=== PATIENT | male | born 1935 | race Caucasian/White ===

== ENCOUNTER → 2016-10-19 | Outpatient (REF) | payer MEDICARE, BC, OTHER ==
[~2016-10-19] MED LIST: ASPI81TA85 PO; CLOP75TA2 PO; COMBAER6 INH; CYAN1000VL PO; DOXA1TAB40 PO; DRIS50002 PO; DRON40TA PO; FURO40TA2 PO; HYDR-3911 PO; LOTE0.5S OS; LOTRCRE TOP; NITR4TASL SL; OMEP40CA2 PO; POTA75TA PO; PRAV40TA2 PO; SENO8.6T5 PO
[2016-10-19 11:41] LABS: BASO % 0.4 % (0.0-1.0); EOS # 0.2 K/mm3 (0.0-0.50); EOS % 2.9 % (0.0-3.0); LARGE UNSTAINED CELL # 0.1 K/mm3 (0.0-0.4); LARGE UNSTAINED CELL % 1.4 % (0.0-4.0); LYMPH # 0.7 K/mm3 (1.5-4.5); LYMPH % 9.9 % (24.0-44.0); MEAN CORPUSCULAR HEMOGLOBIN 31.3 pg (27.0-33.0); MEAN CORPUSCULAR VOLUME 92.1 fl (80.0-96.0); MONO # 0.5 K/mm3 (0.0-0.8); MONO % 6.7 % (0.0-5.0); NEUTROPHILS # 5.4 K/mm3 (1.8-7.7); NEUTROPHILS % 78.8 % (36.0-66.0); PLATELET COUNT, AUTOMATED 167 k/mm3 (150-450); RED CELL DISTRIBUTION WIDTH 12.9 % (11.5-14.5); WHITE BLOOD COUNT 6.8 K/mm3 (4.0-10.0)
[2016-10-19 12:09] LABS: ALBUMIN 3.4 GM/DL (3.2-5.2); CALCIUM LEVEL 8.8 MG/DL (8.8-10.2); CREATININE FOR GFR 1.25 MG/DL (0.70-1.30); GLOMERULAR FILTRATION RATE 58.7 (>35); MAGNESIUM LEVEL 2.2 MG/DL (1.8-2.4); PHOSPHORUS LEVEL 3.1 MG/DL (2.5-4.9); POTASSIUM SERUM 4.1 MEQ/L (3.5-5.1)
== END ==
LOC: M LABDRAWC 11:23
PROVIDERS: ATTEND Internal Medicine Nephrology
DX: E55.9 Vitamin D deficiency, unspecified (principal); N18.2 Chronic kidney disease, stage 2 (mild); N25.81 Secondary hyperparathyroidism of renal origin; I15.9 Secondary hypertension, unspecified; D63.1 Anemia in chronic kidney disease
CPT/HCPCS: 36415; 80069; 81001; 82306; 83735; 83970; 85025; G0463

== ENCOUNTER → 2016-11-27 | Outpatient (REF) | payer MEDICARE, OTHER ==
[2016-11-27 16:53] LABS: ANION GAP 11 MEQ/L (8-16); BLOOD UREA NITROGEN 28 MG/DL (7-18); CALCIUM LEVEL 8.6 MG/DL (8.8-10.2); CARBON DIOXIDE LEVEL 25 MEQ/L (21-32); CHLORIDE LEVEL 96 MEQ/L (98-107); CREATININE FOR GFR 1.12 MG/DL (0.70-1.30); GLOMERULAR FILTRATION RATE > 60.0 (>35); GLUCOSE, FASTING 144 MG/DL (83-110); POTASSIUM SERUM 4.4 MEQ/L (3.5-5.1); SODIUM LEVEL 132 MEQ/L (136-145)
== END ==
LOC: M SFHCCLAY 10:51
PROVIDERS: ATTEND Nurse Practitioner Family
DX: I50.9 Heart failure, unspecified (principal)

== ENCOUNTER → 2016-11-27 | Outpatient (CLI) | payer MEDICARE, BC, OTHER ==
--- NOTE | 2016-11-27 12:58 | REP ---
PA and lateral chest: Comparison is 11/13/2015. There is chronic interstitial coarsening, unchanged, compatible with chronic lung disease. Cardiomegaly and pacemaker are again identified, unchanged. There are surgical clips in the soft tissues of the neck on the left. The alejandra, mediastinum, and bony thorax are unremarkable for patient age, and unchanged. Impression: Chronic interstitial coarsening, chronic cardiomegaly and pacemaker. No new or acute cardiopulmonary findings.
== END ==
LOC: M CLY 11:07
PROVIDERS: ATTEND Nurse Practitioner Family
DX: I50.9 Heart failure, unspecified (principal); I51.7 Cardiomegaly; Z95.0 Presence of cardiac pacemaker
CPT/HCPCS: 71020; 80048; G0463

== ENCOUNTER → 2017-09-16 | Outpatient (REF) | payer MEDICARE, BC, OTHER ==
[2017-09-16 20:19] LABS: APPEARANCE, URINE HAZY (CLEAR); BACTERIA, URINE AUTO 1+ (NEGATIVE); BILIRUBIN, URINE AUTO NEGATIVE (NEGATIVE); BLOOD, URINE BLOOD 3+ (NEGATIVE); COLOR, URINE RED (YELLOW); GLUCOSE, URINE (UA) AUTO NEGATIVE (NEGATIVE); KETONE, URINE AUTO NEGATIVE (NEGATIVE); LEUKOCYTE ESTERASE, URINE AUTO NEGATIVE (NEGATIVE); MUCUS, URINE SMALL (NEGATIVE); NITRITE, URINE AUTO NEGATIVE (NEGATIVE); PROTEIN, URINE AUTO 1+ mg/dL (NEGATIVE); RBC, URINE AUTO TNTC /HPF (0-3); SPECIFIC GRAVITY URINE AUTO 1.006 (1.002-1.035); SQUAMOUS EPITHELIAL CELL UR AU 0 /HPF (0-6); UROBILINOGEN, URINE AUTO 0.2 mg/dL (0.0-2.0); WBC, URINE AUTO 5 /HPF (0-3)
== END ==
LOC: M LAB REF 16:48
DX: N18.3 Chronic kidney disease, stage 3 (moderate) (principal); R31.9 Hematuria, unspecified; I70.1 Atherosclerosis of renal artery
CPT/HCPCS: 81001

== ENCOUNTER → 2017-09-22 | Outpatient (CLI) | payer MEDICARE, BC, OTHER ==
[~2017-09-22] MED LIST changes: -ASPI81TA85 PO; -CLOP75TA2 PO; -COMBAER6 INH; -CYAN1000VL PO; -DOXA1TAB40 PO; -DRIS50002 PO; -DRON40TA PO; -FURO40TA2 PO; -HYDR-3911 PO; +ISOVUE-370 76% 100ML VIAL (Q9967) As Ordered; -LOTE0.5S OS; -LOTRCRE TOP; -NITR4TASL SL; -OMEP40CA2 PO; -POTA75TA PO; -PRAV40TA2 PO; -SENO8.6T5 PO
== END ==
LOC: M RAD 16:53
DX: N18.3 Chronic kidney disease, stage 3 (moderate) (principal); I15.0 Renovascular hypertension; R31.9 Hematuria, unspecified; Z85.46 Personal history of malignant neoplasm of prostate; J84.10 Pulmonary fibrosis, unspecified; Z95.0 Presence of cardiac pacemaker; N20.0 Calculus of kidney; N13.30 Unspecified hydronephrosis
CPT/HCPCS: Q9967

== ENCOUNTER → 2017-09-29 | Outpatient (REF) | payer MEDICARE, BC, OTHER ==
[2017-09-29 13:49] LABS: AMORPHOUS SEDIMENT SMALL (NEGATIVE); APPEARANCE, URINE HAZY (CLEAR); BACTERIA, URINE AUTO NEGATIVE (NEGATIVE); BILIRUBIN, URINE AUTO NEGATIVE (NEGATIVE); BLOOD, URINE BLOOD 3+ (NEGATIVE); COLOR, URINE YELLOW (YELLOW); GLUCOSE, URINE (UA) AUTO NEGATIVE (NEGATIVE); KETONE, URINE AUTO NEGATIVE (NEGATIVE); LEUKOCYTE ESTERASE, URINE AUTO NEGATIVE (NEGATIVE); MUCUS, URINE SMALL (NEGATIVE); NITRITE, URINE AUTO NEGATIVE (NEGATIVE); PROTEIN, URINE AUTO NEGATIVE (NEGATIVE); RBC, URINE AUTO TNTC /HPF (0-3); SPECIFIC GRAVITY URINE AUTO 1.009 (1.002-1.035); SQUAMOUS EPITHELIAL CELL UR AU 0 /HPF (0-6); UROBILINOGEN, URINE AUTO 0.2 mg/dL (0.0-2.0); WBC, URINE AUTO 11 /HPF (0-3)
== END ==
LOC: M SMT 12:59
DX: R31.9 Hematuria, unspecified (principal)
CPT/HCPCS: 81001

== ENCOUNTER → 2017-10-14 | Outpatient (CLI) | payer MEDICARE, BC, OTHER | LOC: M RAD 14:07 | DX: N26.1 Atrophy of kidney (terminal) (principal); N13.39 Other hydronephrosis | CPT/HCPCS: 76775 ==

== ENCOUNTER 2017-10-15 08:01 | Inpatient (IN) | payer MEDICARE, BC, OTHER ==
[2017-10-15] MEDS: FUROSEMIDE 40 MG/4 ML VIAL (J1940) IV ×2 (08:32→17:05)
[2017-10-15 08:45] LABS: BASO % 0.2 % (0.0-1.0); EOS # 0.1 10^3/uL (0.0-0.50); EOS % 0.8 % (0.0-3.0); HEMOGLOBIN 13.5 g/dl (13.5-17.5); IMMATURE GRANULOCYTE % 0.7 % (0-3.0); LYMPH # 0.6 10^3/uL (1.5-4.5); LYMPH % 3.7 % (24.0-44.0); MEAN CORPUSCULAR HEMOGLOBIN 29.2 pg (27.0-33.0); MEAN CORPUSCULAR HGB CONC 32.9 g/dl (32.0-36.5); MEAN CORPUSCULAR VOLUME 88.7 fl (80.0-96.0); MONO # 0.9 10^3/uL (0.0-0.8); MONO % 5.2 % (0.0-5.0); NEUTROPHILS # 15.4 10^3/uL (1.8-7.7); NEUTROPHILS % 89.4 % (36.0-66.0); PLATELET COUNT, AUTOMATED 196 10^3/uL (150-450); RED BLOOD COUNT 4.62 10^6/uL (4.30-6.10); RED CELL DISTRIBUTION WIDTH 14.2 % (11.5-14.5); WHITE BLOOD COUNT 17.2 10^3/uL (4.0-10.0)
[2017-10-15 09:14] LABS: INR 1.09; PROTHROMBIN TIME 14.3 SECONDS (12.1-14.4)
[2017-10-15 09:29] LABS: ALBUMIN 3.1 GM/DL (3.2-5.2); ALBUMIN/GLOBULIN RATIO 0.86 (1.00-1.93); ALKALINE PHOSPHATASE 73 U/L (45-117); ALT/SGPT 17 U/L (12-78); ANION GAP 9 MEQ/L (8-16); AST/SGOT 13 U/L (7-37); BILIRUBIN,DIRECT 0.1 MG/DL (0.0-0.2); BILIRUBIN,TOTAL 0.7 MG/DL (0.2-1.0); BLOOD UREA NITROGEN 48 MG/DL (7-18); CALCIUM LEVEL 9.4 MG/DL (8.8-10.2); CARBON DIOXIDE LEVEL 29 MEQ/L (21-32); CHLORIDE LEVEL 102 MEQ/L (98-107); CK-MB VALUE MASS 1.7 NG/ML (<3.6); CPK CREATINE PHOSPHOKINASE 23 U/L (39-308); CREATININE FOR GFR 1.53 MG/DL (0.70-1.30); GLOMERULAR FILTRATION RATE 46.4 (>35); GLUCOSE, FASTING 86 MG/DL (70-100); MB/CK RELATIVE INDEX 7.39 (< OR =4); NT-PRO BNP 23390 PG/ML (<450); POTASSIUM SERUM 3.2 MEQ/L (3.5-5.1); SODIUM LEVEL 140 MEQ/L (136-145); TOTAL PROTEIN 6.7 GM/DL (6.4-8.2); TROPONIN I 0.08 NG/ML (< 0.10)
[2017-10-15] MEDS ORDERED: METOPROLOL 5 MG/5 ML VIAL As Ordered (10:42)
[2017-10-15] MEDS: METOPROLOL 5 MG/5 ML VIAL IV ×3 (10:45→10:56)
[2017-10-15] MEDS: SOTALOL HCL 80 MG TAB PO ×2 (10:47→20:02)
[2017-10-15] MEDS ORDERED: NITROGLYCERIN 0.4 MG SUBL TABLET SL (14:15)
[2017-10-15] MEDS: POTASSIUM CHLORIDE 10 MEQ SR TABLET PO (14:38)
[2017-10-15] MEDS: CLOPIDOGREL 75 MG TAB PO (14:39)
[2017-10-15] MEDS: METOPROLOL TART 25 MG TABLET PO (14:40)
[2017-10-15 15:13] LABS: ANION GAP 8 MEQ/L (8-16); BLOOD UREA NITROGEN 48 MG/DL (7-18); CALCIUM LEVEL 9.2 MG/DL (8.8-10.2); CARBON DIOXIDE LEVEL 31 MEQ/L (21-32); CHLORIDE LEVEL 100 MEQ/L (98-107); CPK CREATINE PHOSPHOKINASE 17 U/L (39-308); CREATININE FOR GFR 1.81 MG/DL (0.70-1.30); FREE T4 1.02 NG/DL (0.76-1.46); GLOMERULAR FILTRATION RATE 38.2 (>35); GLUCOSE, FASTING 220 MG/DL (70-100); POTASSIUM SERUM 3.5 MEQ/L (3.5-5.1); SODIUM LEVEL 139 MEQ/L (136-145); TROPONIN I 0.09 NG/ML (< 0.10)
[2017-10-15 15:19] LABS: CK-MB VALUE MASS 2.1 NG/ML (<3.6); MB/CK RELATIVE INDEX 12.35 (< OR =4)
[2017-10-15] MEDS ORDERED: SLF 3 ML SYR IV (15:45)
[2017-10-15] MEDS: PRAVASTATIN 20 MG TAB PO (17:06)
[2017-10-15] MEDS: SENOKOT S TAB PO (17:06)
[2017-10-15] MEDS: FEBUXOSTAT 40 MG TABLET (ULORIC) PO (17:06)
[2017-10-15] MEDS: TERAZOSIN 1 MG CAP PO (17:06)
[2017-10-15] MEDS: CALCITRIOL 0.25 MCG CAP (S0169) PO (17:09)
[2017-10-15] MEDS: OMEPRAZOLE 20 MG CAP PO (20:02)
[2017-10-15] MEDS: SLF 3 ML SYR IV (20:03)
[2017-10-16] MEDS: SLF 3 ML SYR IV ×3 (04:17→20:12)
[2017-10-16 05:27] LABS: HEMATOCRIT 36.8 % (42.0-52.0); MEAN CORPUSCULAR HEMOGLOBIN 28.9 pg (27.0-33.0); MEAN CORPUSCULAR HGB CONC 32.6 g/dl (32.0-36.5); MEAN CORPUSCULAR VOLUME 88.7 fl (80.0-96.0); PLATELET COUNT, AUTOMATED 162 10^3/uL (150-450); RED BLOOD COUNT 4.15 10^6/uL (4.30-6.10); RED CELL DISTRIBUTION WIDTH 14.2 % (11.5-14.5); WHITE BLOOD COUNT 13.1 10^3/uL (4.0-10.0)
[2017-10-16 05:48] LABS: ALKALINE PHOSPHATASE 60 U/L (45-117); ALT/SGPT 15 U/L (12-78); ANION GAP 10 MEQ/L (8-16); AST/SGOT 11 U/L (7-37); BILIRUBIN,TOTAL 0.7 MG/DL (0.2-1.0); BLOOD UREA NITROGEN 55 MG/DL (7-18); CALCIUM LEVEL 9.1 MG/DL (8.8-10.2); CARBON DIOXIDE LEVEL 28 MEQ/L (21-32); CHLORIDE LEVEL 103 MEQ/L (98-107); CREATININE FOR GFR 1.58 MG/DL (0.70-1.30); GLOMERULAR FILTRATION RATE 44.7 (>35); GLUCOSE, FASTING 115 MG/DL (70-100); POTASSIUM SERUM 3.5 MEQ/L (3.5-5.1); SODIUM LEVEL 141 MEQ/L (136-145); TROPONIN I 0.07 NG/ML (< 0.10)
[2017-10-16] MEDS: FEBUXOSTAT 40 MG TABLET (ULORIC) PO (09:09)
[2017-10-16] MEDS: OMEPRAZOLE 20 MG CAP PO ×2 (09:09→20:11)
[2017-10-16] MEDS: FUROSEMIDE 40 MG/4 ML VIAL (J1940) IV (09:09)
[2017-10-16] MEDS: CLOPIDOGREL 75 MG TAB PO (09:10)
[2017-10-16] MEDS: SOTALOL HCL 80 MG TAB PO ×2 (09:10→20:11)
[2017-10-16] MEDS: PRAVASTATIN 20 MG TAB PO (09:10)
[2017-10-16] MEDS: CALCITRIOL 0.25 MCG CAP (S0169) PO (09:10)
[2017-10-16] MEDS: TERAZOSIN 1 MG CAP PO (09:10)
[2017-10-16] MEDS: POTASSIUM CHLORIDE 10 MEQ SR TABLET PO ×3 (14:37→20:11)
[2017-10-16 17:16] LABS: APPEARANCE, URINE HAZY (CLEAR); BACTERIA, URINE AUTO NEGATIVE (NEGATIVE); BILIRUBIN, URINE AUTO NEGATIVE (NEGATIVE); BLOOD, URINE BLOOD 3+ (NEGATIVE); COLOR, URINE YELLOW (YELLOW); GLUCOSE, URINE (UA) AUTO NEGATIVE (NEGATIVE); KETONE, URINE AUTO NEGATIVE (NEGATIVE); LEUKOCYTE ESTERASE, URINE AUTO NEGATIVE (NEGATIVE); MUCUS, URINE SMALL (NEGATIVE); NITRITE, URINE AUTO NEGATIVE (NEGATIVE); PROTEIN, URINE AUTO NEGATIVE (NEGATIVE); RBC, URINE AUTO TNTC /HPF (0-3); SPECIFIC GRAVITY URINE AUTO 1.009 (1.002-1.035); SQUAMOUS EPITHELIAL CELL UR AU 0 /HPF (0-6); UROBILINOGEN, URINE AUTO 0.2 mg/dL (0.0-2.0); WBC, URINE AUTO 8 /HPF (0-3)
[2017-10-16] MEDS: ATORVASTATIN 20 MG TAB PO (20:11)
[2017-10-16] MEDS: CARVedilol 3.125 MG TAB PO (20:11)
[2017-10-16] MEDS: SENOKOT S TAB PO (20:12)
[2017-10-17 05:46] LABS: HEMATOCRIT 37.1 % (42.0-52.0); HEMOGLOBIN 11.8 g/dl (13.5-17.5); MEAN CORPUSCULAR HEMOGLOBIN 28.6 pg (27.0-33.0); MEAN CORPUSCULAR HGB CONC 31.8 g/dl (32.0-36.5); MEAN CORPUSCULAR VOLUME 89.8 fl (80.0-96.0); PLATELET COUNT, AUTOMATED 168 10^3/uL (150-450); RED BLOOD COUNT 4.13 10^6/uL (4.30-6.10); RED CELL DISTRIBUTION WIDTH 14.4 % (11.5-14.5); WHITE BLOOD COUNT 10.3 10^3/uL (4.0-10.0)
[2017-10-17] MEDS: **hydrALAZINE** 10 MG TAB PO ×2 (06:00→12:16)
[2017-10-17] MEDS: SLF 3 ML SYR IV ×3 (06:00→21:18)
[2017-10-17] MEDS: ISOSORBIDE DIN (ISORDIL) 10 MG TAB PO ×2 (06:00→12:16)
[2017-10-17 06:02] LABS: ALBUMIN 2.8 GM/DL (3.2-5.2); ALBUMIN/GLOBULIN RATIO 0.85 (1.00-1.93); ALKALINE PHOSPHATASE 56 U/L (45-117); ALT/SGPT 15 U/L (12-78); ANION GAP 5 MEQ/L (8-16); AST/SGOT 10 U/L (7-37); BILIRUBIN,TOTAL 0.7 MG/DL (0.2-1.0); BLOOD UREA NITROGEN 52 MG/DL (7-18); CALCIUM LEVEL 9.1 MG/DL (8.8-10.2); CARBON DIOXIDE LEVEL 31 MEQ/L (21-32); CHLORIDE LEVEL 109 MEQ/L (98-107); CREATININE FOR GFR 1.38 MG/DL (0.70-1.30); GLOMERULAR FILTRATION RATE 52.3 (>35); GLUCOSE, FASTING 92 MG/DL (70-100); MAGNESIUM LEVEL 1.8 MG/DL (1.8-2.4); POTASSIUM SERUM 3.4 MEQ/L (3.5-5.1); SODIUM LEVEL 145 MEQ/L (136-145); TOTAL PROTEIN 6.1 GM/DL (6.4-8.2)
[2017-10-17] MEDS: FEBUXOSTAT 40 MG TABLET (ULORIC) PO (08:41)
[2017-10-17] MEDS: SPIRONOLACTONE 12.5MG PER 1/2 TABLET PO (08:41)
[2017-10-17] MEDS: CLOPIDOGREL 75 MG TAB PO (08:41)
[2017-10-17] MEDS: TORSEMIDE 20 MG TAB PO (08:41)
[2017-10-17] MEDS: SOTALOL HCL 80 MG TAB PO ×2 (08:41→21:17)
[2017-10-17] MEDS: CARVedilol 3.125 MG TAB PO ×2 (08:42→12:15)
[2017-10-17] MEDS: CALCITRIOL 0.25 MCG CAP (S0169) PO (08:42)
[2017-10-17] MEDS: OMEPRAZOLE 20 MG CAP PO ×2 (08:42→21:16)
[2017-10-17] MEDS: TERAZOSIN 1 MG CAP PO (08:43)
[2017-10-17] MEDS: **hydrALAZINE HCL** 25 MG TAB PO (17:49)
[2017-10-17] MEDS: ISOSORBIDE DIN. (ISORDIL) 20 MG TAB PO (17:49)
[2017-10-17] MEDS: POTASSIUM CHLORIDE 10 MEQ SR TABLET PO ×2 (17:49→21:17)
[2017-10-17] MEDS: CARVedilol 6.25 MG TAB PO (21:17)
[2017-10-17] MEDS: ATORVASTATIN 20 MG TAB PO (21:17)
[2017-10-18 05:16] LABS: HEMATOCRIT 36.9 % (42.0-52.0); HEMOGLOBIN 11.7 g/dl (13.5-17.5); MEAN CORPUSCULAR HEMOGLOBIN 28.7 pg (27.0-33.0); MEAN CORPUSCULAR HGB CONC 31.7 g/dl (32.0-36.5); MEAN CORPUSCULAR VOLUME 90.4 fl (80.0-96.0); PLATELET COUNT, AUTOMATED 159 10^3/uL (150-450); RED BLOOD COUNT 4.08 10^6/uL (4.30-6.10); RED CELL DISTRIBUTION WIDTH 14.4 % (11.5-14.5); WHITE BLOOD COUNT 8.9 10^3/uL (4.0-10.0)
[2017-10-18] MEDS: SLF 3 ML SYR IV ×2 (05:22→13:33)
[2017-10-18 05:39] LABS: ALBUMIN 2.8 GM/DL (3.2-5.2); ALBUMIN/GLOBULIN RATIO 0.85 (1.00-1.93); ALKALINE PHOSPHATASE 59 U/L (45-117); ALT/SGPT 14 U/L (12-78); ANION GAP 7 MEQ/L (8-16); AST/SGOT 11 U/L (7-37); BILIRUBIN,TOTAL 0.5 MG/DL (0.2-1.0); BLOOD UREA NITROGEN 46 MG/DL (7-18); CALCIUM LEVEL 8.7 MG/DL (8.8-10.2); CARBON DIOXIDE LEVEL 29 MEQ/L (21-32); CHLORIDE LEVEL 110 MEQ/L (98-107); CREATININE FOR GFR 1.42 MG/DL (0.70-1.30); GLOMERULAR FILTRATION RATE 50.6 (>35); GLUCOSE, FASTING 87 MG/DL (70-100); MAGNESIUM LEVEL 1.8 MG/DL (1.8-2.4); POTASSIUM SERUM 3.8 MEQ/L (3.5-5.1); SODIUM LEVEL 146 MEQ/L (136-145); TOTAL PROTEIN 6.1 GM/DL (6.4-8.2)
[2017-10-18] MEDS: **hydrALAZINE HCL** 25 MG TAB PO ×3 (06:20→16:21)
[2017-10-18] MEDS: ISOSORBIDE DIN. (ISORDIL) 20 MG TAB PO ×3 (06:20→16:21)
[2017-10-18] MEDS: OMEPRAZOLE 20 MG CAP PO (08:52)
[2017-10-18] MEDS: TERAZOSIN 1 MG CAP PO (08:52)
[2017-10-18] MEDS: SOTALOL HCL 80 MG TAB PO (08:52)
[2017-10-18] MEDS: CALCITRIOL 0.25 MCG CAP (S0169) PO (08:52)
[2017-10-18] MEDS: FEBUXOSTAT 40 MG TABLET (ULORIC) PO (08:52)
[2017-10-18] MEDS: CARVedilol 6.25 MG TAB PO (08:53)
[2017-10-18] MEDS: CLOPIDOGREL 75 MG TAB PO (08:53)
[2017-10-18] MEDS: POTASSIUM CHLORIDE 10 MEQ SR TABLET PO ×3 (08:53→16:21)
[2017-10-18] MEDS: TORSEMIDE 20 MG TAB PO (08:53)
[2017-10-18] MEDS ORDERED: FUROSEMIDE 20 MG/2 ML VIAL (J1940) As Ordered (11:59)
[2017-10-19 14:28] LABS: PSA TOTAL 0.9 ng/mL (0.0-4.0)
== END 2017-10-18 17:38 | disposition home or self-care (01) | DRG 291 ==
LOC: M ED 08:01 → M ED INP 13:52 → M PCU 15:26
DX: I13.0 Hypertensive heart and chronic kidney disease with heart failure and stage 1 through stage 4 chronic kidney disease, or unspecified chronic kidney disease (principal); I50.43 Acute on chronic combined systolic (congestive) and diastolic (congestive) heart failure; N13.30 Unspecified hydronephrosis; I48.0 Paroxysmal atrial fibrillation; I70.1 Atherosclerosis of renal artery; N18.3 Chronic kidney disease, stage 3 (moderate); Z95.0 Presence of cardiac pacemaker; E78.5 Hyperlipidemia, unspecified; E78.4 Other hyperlipidemia; I73.9 Peripheral vascular disease, unspecified; Z96.652 Presence of left artificial knee joint; Z96.651 Presence of right artificial knee joint; Z96.611 Presence of right artificial shoulder joint; Z96.612 Presence of left artificial shoulder joint; Z87.891 Personal history of nicotine dependence; Z79.899 Other long term (current) drug therapy; Z88.8 Allergy status to other drugs, medicaments and biological substances; I27.20 Pulmonary hypertension, unspecified; I49.5 Sick sinus syndrome; I08.0 Rheumatic disorders of both mitral and aortic valves; R31.0 Gross hematuria; Z86.73 Personal history of transient ischemic attack (TIA), and cerebral infarction without residual deficits; Z85.46 Personal history of malignant neoplasm of prostate

== ENCOUNTER → 2017-10-22 | Outpatient (REF) | payer MEDICARE, OTHER ==
[2017-10-22 11:31] LABS: ALBUMIN 3.1 GM/DL (3.2-5.2); ANION GAP 10 MEQ/L (8-16); BLOOD UREA NITROGEN 44 MG/DL (7-18); CALCIUM LEVEL 8.8 MG/DL (8.8-10.2); CARBON DIOXIDE LEVEL 23 MEQ/L (21-32); CHLORIDE LEVEL 111 MEQ/L (98-107); CREATININE FOR GFR 1.64 MG/DL (0.70-1.30); GLOMERULAR FILTRATION RATE 42.8 (>35); GLUCOSE, FASTING 86 MG/DL (70-100); PHOSPHORUS LEVEL 3.7 MG/DL (2.5-4.9); SODIUM LEVEL 144 MEQ/L (136-145)
[2017-10-22 11:36] LABS: POTASSIUM SERUM 5.3 MEQ/L (3.5-5.1)
== END ==
LOC: M SFHCCLAY 07:52
DX: I70.1 Atherosclerosis of renal artery (principal)
CPT/HCPCS: 80069

== ENCOUNTER → 2017-10-29 | Outpatient (REF) | payer MEDICARE, BC, OTHER ==
[2017-10-29 11:48] LABS: PROTHROMBIN TIME 13.3 SECONDS (12.1-14.4)
[2017-10-29 11:49] LABS: PARTIAL THROMBOPLASTIN TIME 33.8 SECONDS (25.4-37.6)
== END ==
LOC: M LABDRAWC 11:16
DX: Z01.818 Encounter for other preprocedural examination (principal); I70.1 Atherosclerosis of renal artery; D69.8 Other specified hemorrhagic conditions

== ENCOUNTER → 2017-10-29 | Outpatient (REF) | payer MEDICARE, BC, OTHER ==
[2017-10-29 12:12] LABS: APPEARANCE, URINE CLEAR (CLEAR); BACTERIA, URINE AUTO 1+ (NEGATIVE); BILIRUBIN, URINE AUTO NEGATIVE (NEGATIVE); BLOOD, URINE BLOOD 3+ (NEGATIVE); COLOR, URINE YELLOW (YELLOW); GLUCOSE, URINE (UA) AUTO NEGATIVE (NEGATIVE); KETONE, URINE AUTO NEGATIVE (NEGATIVE); LEUKOCYTE ESTERASE, URINE AUTO NEGATIVE (NEGATIVE); MUCUS, URINE SMALL (NEGATIVE); NITRITE, URINE AUTO NEGATIVE (NEGATIVE); PROTEIN, URINE AUTO NEGATIVE (NEGATIVE); RBC, URINE AUTO TNTC /HPF (0-3); SPECIFIC GRAVITY URINE AUTO 1.008 (1.002-1.035); SQUAMOUS EPITHELIAL CELL UR AU 0 /HPF (0-6); UROBILINOGEN, URINE AUTO 0.2 mg/dL (0.0-2.0); WBC, URINE AUTO 6 /HPF (0-3)
== END ==
LOC: M SMT 11:18
DX: Z01.818 Encounter for other preprocedural examination (principal); N13.30 Unspecified hydronephrosis; Z79.01 Long term (current) use of anticoagulants; R39.9 Unspecified symptoms and signs involving the genitourinary system
CPT/HCPCS: 85610

== ENCOUNTER 2017-11-05 11:00 | Day surgery (SDC) | payer MEDICARE, BC, OTHER ==
[2017-11-05] MEDS ORDERED: LR 1,000 ML IV ×3 (11:15)
[2017-11-05] MEDS: CEFEPIME HCL 1 GM in D5W MINI-BAG PLUS 50 ML IV ×3 (15:50)
[2017-11-05] MEDS: LIDOCAINE 2% 5ML JELLY UROJET As Ordered ×3 (16:06)
[2017-11-05] MEDS: CONRAY-60 60% 50ML VIAL (Q9961) As Ordered ×3 (16:11)
[2017-11-05] MEDS ORDERED: LIDOCAINE 2% INJ 100 MG/5 ML SDV (FOR ANES.) As Ordered ×3 (16:14)
[2017-11-05] MEDS ORDERED: PROPOFOL 500 MG/50 ML VIAL As Ordered ×3 (16:14)
[2017-11-05] MEDS ORDERED: fentaNYL 100 MCG/2 ML INJECTION (J3010) As Ordered ×3 (16:14)
[2017-11-05] MEDS ORDERED: ONDANSETRON 4MG/2ML VIAL (J2405) As Ordered ×3 (16:14)
[2017-11-05] MEDS ORDERED: hydrALAZINE INJ 20 MG/ML VIAL As Ordered ×3 (16:44)
== END 2017-11-05 17:50 | disposition home or self-care (01) ==
LOC: M SDC 11:00
DX: C67.9 Malignant neoplasm of bladder, unspecified (principal); N13.39 Other hydronephrosis; R31.0 Gross hematuria; I25.10 Atherosclerotic heart disease of native coronary artery without angina pectoris; I10 Essential (primary) hypertension; I25.2 Old myocardial infarction; I50.9 Heart failure, unspecified; Z95.0 Presence of cardiac pacemaker; Z79.899 Other long term (current) drug therapy; M10.9 Gout, unspecified; K21.9 Gastro-esophageal reflux disease without esophagitis; N18.9 Chronic kidney disease, unspecified; Z85.46 Personal history of malignant neoplasm of prostate; Z88.8 Allergy status to other drugs, medicaments and biological substances
CPT/HCPCS: 52204; 52332

== ENCOUNTER → 2017-11-18 | Outpatient (REF) | payer MEDICARE, OTHER ==
[2017-11-18 15:16] LABS: HEMATOCRIT 35.8 % (42.0-52.0); HEMOGLOBIN 11.4 g/dl (13.5-17.5); MEAN CORPUSCULAR HEMOGLOBIN 28.7 pg (27.0-33.0); MEAN CORPUSCULAR HGB CONC 31.8 g/dl (32.0-36.5); MEAN CORPUSCULAR VOLUME 90.2 fl (80.0-96.0); PLATELET COUNT, AUTOMATED 189 10^3/uL (150-450); RED BLOOD COUNT 3.97 10^6/uL (4.30-6.10); RED CELL DISTRIBUTION WIDTH 14.8 % (11.5-14.5); WHITE BLOOD COUNT 7.8 10^3/uL (4.0-10.0)
[2017-11-18 15:35] LABS: ANION GAP 10 MEQ/L (8-16); BLOOD UREA NITROGEN 21 MG/DL (7-18); CALCIUM LEVEL 9.3 MG/DL (8.8-10.2); CARBON DIOXIDE LEVEL 22 MEQ/L (21-32); CHLORIDE LEVEL 107 MEQ/L (98-107); CREATININE FOR GFR 1.16 MG/DL (0.70-1.30); GLOMERULAR FILTRATION RATE > 60.0 (>35); GLUCOSE, FASTING 90 MG/DL (70-100); POTASSIUM SERUM 4.7 MEQ/L (3.5-5.1); SODIUM LEVEL 139 MEQ/L (136-145)
== END ==
LOC: M LABDRAWC 13:22
DX: I25.10 Atherosclerotic heart disease of native coronary artery without angina pectoris (principal); I48.0 Paroxysmal atrial fibrillation; Q61.3 Polycystic kidney, unspecified; D64.9 Anemia, unspecified
CPT/HCPCS: 80048

== ENCOUNTER → 2017-11-25 | Outpatient (REF) | payer MEDICARE, OTHER | LOC: M SMT 11:14 | DX: Z01.818 Encounter for other preprocedural examination (principal); C66.2 Malignant neoplasm of left ureter; N39.0 Urinary tract infection, site not specified | CPT/HCPCS: 87086 ==

== ENCOUNTER → 2017-11-25 | Outpatient (REF) | payer MEDICARE, OTHER | LOC: M LABSMT 08:06 → M LABDRAWC 08:23 | DX: Z01.818 Encounter for other preprocedural examination (principal); C66.2 Malignant neoplasm of left ureter; N39.0 Urinary tract infection, site not specified ==

== ENCOUNTER 2017-12-02 08:26 | Day surgery (SDC) | payer MEDICARE, BC, OTHER ==
[2017-12-02] MEDS: LR 1,000 ML IV (09:42)
[2017-12-02] MEDS ORDERED: MIDAZOLAM INJ 2 MG/2 ML VIAL (J2250) As Ordered (10:25)
[2017-12-02] MEDS ORDERED: fentaNYL 100 MCG/2 ML INJECTION (J3010) As Ordered (10:25)
[2017-12-02] MEDS ORDERED: PROPOFOL 200 MG/20 ML VIAL As Ordered (12:26)
[2017-12-02] MEDS ORDERED: ONDANSETRON 4MG/2ML VIAL (J2405) As Ordered (12:26)
[2017-12-02] MEDS ORDERED: LIDOCAINE 2% INJ 100 MG/5 ML SDV (FOR ANES.) As Ordered (12:26)
[2017-12-02] MEDS ORDERED: dexameTHASONE 4 MG/ML 1ML VIAL (J1100) As Ordered (12:26)
[2017-12-02] MEDS ORDERED: KETOROLAC 60 MG/2 ML VIAL (J1885) As Ordered (12:36)
[2017-12-02] MEDS: CONRAY-60 60% 50ML VIAL (Q9961) As Ordered (12:39)
[2017-12-02] MEDS ORDERED: fentaNYL 100 MCG/2 ML INJECTION (J3010) IV (13:30)
[2017-12-02] MEDS ORDERED: ONDANSETRON 4MG/2ML VIAL (J2405) IV (13:30)
[2017-12-02] MEDS ORDERED: LR 1,000 ML IV (13:30)
== END 2017-12-02 14:35 | disposition home or self-care (01) ==
LOC: M SDC 08:26
DX: C66.2 Malignant neoplasm of left ureter (principal); I11.0 Hypertensive heart disease with heart failure; E78.00 Pure hypercholesterolemia, unspecified; I48.91 Unspecified atrial fibrillation; I50.32 Chronic diastolic (congestive) heart failure; R31.0 Gross hematuria; C61 Malignant neoplasm of prostate; I25.10 Atherosclerotic heart disease of native coronary artery without angina pectoris; I25.2 Old myocardial infarction; I70.1 Atherosclerosis of renal artery; I70.8 Atherosclerosis of other arteries; K21.9 Gastro-esophageal reflux disease without esophagitis; R29.898 Other symptoms and signs involving the musculoskeletal system; M12.9 Arthropathy, unspecified; R06.02 Shortness of breath; Q60.0 Renal agenesis, unilateral; N40.0 Benign prostatic hyperplasia without lower urinary tract symptoms; Z88.8 Allergy status to other drugs, medicaments and biological substances; Z91.09 Other allergy status, other than to drugs and biological substances; Z79.899 Other long term (current) drug therapy; Z79.01 Long term (current) use of anticoagulants; Z95.0 Presence of cardiac pacemaker; Z86.73 Personal history of transient ischemic attack (TIA), and cerebral infarction without residual deficits; Z87.891 Personal history of nicotine dependence; Z96.652 Presence of left artificial knee joint; Z95.828 Presence of other vascular implants and grafts
CPT/HCPCS: 52354

== ENCOUNTER → 2017-12-22 | Outpatient (REF) | payer MEDICARE, OTHER ==
[2017-12-22 18:54] LABS: CRYSTALS, BODY FLUID NONE SEEN (NONE SEEN); SOURCE, BODY FLUID CRYSTALS RT KNEE
[2017-12-22 19:03] LABS: BF MONONUCLEAR CELL % 10.9 % (0-0); BF POLYMORPHONUCLEAR CELL % 89.1 % (0-0); RBC BODY FLUID 4 10^3/uL (<2); WBC BODY FLUID 8016 /uL (0-10)
[2017-12-22 19:07] LABS: APPEARANCE, BODY FLUID HAZY (CLEAR); BF DIFF IF INDICATED? YES (NO); SOURCE, BODY FLUID RT KNEE; SYNOVIAL FLUID COLOR YELLOW (YELLOW)
[2017-12-22 19:47] LABS: SOURCE, BODY FLUID GLUCOSE RT KNEE; SOURCE, BODY FLUID URIC ACID RT KNEE; URIC ACID, BODY FLUID 4.2 MG/DL (NOT ESTABLISHED)
[2017-12-23 08:58] LABS: BODY FLUID RHEUMATOID SCREEN NEGATIVE (NEGATIVE)
[2017-12-23 09:00] LABS: MUCIN CLOT TEST 4+ (4+)
== END ==
LOC: M LAB REF 17:22
DX: M25.561 Pain in right knee (principal); M17.11 Unilateral primary osteoarthritis, right knee
CPT/HCPCS: 82945